=== PATIENT | female | born 1960 | race Caucasian/White ===

== ENCOUNTER → 2022-07-06 15:46 | Outpatient (CLI) | payer OTHER, MEDICAID, SELFPAY ==
--- NOTE | 2022-07-06 | DI.US.S_ITS ---
PROCEDURE: US THYROID INDICATIONS: ENLARGED RIGHT THYROID TECHNIQUE: Real-time scanning was performed of the thyroid gland, with image documentation. COMPARISON: None. FINDINGS: Right: Thyroid lobe measures 6.3 x 2.8 x 2.7 cm, and is homogeneous in echotexture. Left: Thyroid lobe measures 4.9 x 1.6 x 1.6 cm, and is diffusely heterogeneous in echotexture. Isthmus: 6 mm thick. At the inferior aspect of the right thyroid lobe there is a 16 mm solid-appearing mass with minimal internal vascularity. IMPRESSION: 1. Diffusely heterogeneous left thyroid. 2. No focal thyroid nodule. 3. Solid-appearing mass inferior to the right thyroid lobe which is indeterminate, with differential considerations including malignant neoplasm versus parathyroid lesion. This could be further assessed with IV contrast enhanced neck CT, if clinically indicated. Dictated by: Katharine Newell M.D. on 07/07/2022 at 12:16 Transcribed by: MAINOR on 07/07/2022 at 12:19 Approved by: Katharine Newell M.D. on 07/07/2022 at 16:53
== END ==
PROVIDERS: PCP Nurse Practitioner Family; Referring Provider Otolaryngology; Visit Provider Otolaryngology
DX: E04.9 Nontoxic goiter, unspecified (principal)
CPT/HCPCS: 76536

== ENCOUNTER → 2022-07-28 14:39 | Outpatient (CLI) | payer OTHER, MEDICAID, SELFPAY ==
--- NOTE | 2022-07-28 | DI.CT.S_ITS ---
PROCEDURE: CT SOFT TISSUE NECK WO/W CON INDICATIONS: NECK MASS TECHNIQUE: Before and after the administration of intravenous contrast, 2.0 mm axial sections acquired through the neck and down to the mabel. Additional 2.0 mm coronal and sagittal reformats were generated of the contrast enhanced images. For radiation dose reduction, the following was used: automated exposure control. COMPARISON: [facility], US, US THYROID, 07/06/2022, 15:55. FINDINGS: Image quality: Excellent. Thyroid: Thyroid gland is overall prominent in size bilaterally and heterogeneous in appearance. As noted on ultrasound, there is a masslike structure along the inferior aspect of the right thyroid lobe. It demonstrates enhancement pattern similar to the thyroid gland. Lymph nodes: No enlarged lymph nodes seen throughout the neck. Vessels: Visualized vasculature appears patent. Neck spaces: The oropharynx, nasopharynx, and pharynx demonstrate no mucosal lesions. The vocal cords, false vocal cords, pyriform sinuses, epiglottis, vallecula, and tongue base all appear normal. Extramucosal spaces appear unremarkable. Glands: The parotid and submandibular glands appear normal. Miscellaneous: Visualized lungs appear clear. Superficial soft tissues appear normal. Bones: No suspicious bony lesions. Visualized sinuses and mastoids appear unremarkable. IMPRESSION: Soft tissue density along the inferior margin of the right thyroid lobe as above. It demonstrates a similar enhancement pattern to the thyroid is suspected to be an inferior nodule. However, direct correlation with a nuclear medicine parathyroid exam is recommended. Dictated by: Kathi Aranda M.D. on 07/28/2022 at 16:43 Approved by: Kathi Aranda M.D. on 07/28/2022 at 16:46
== END ==
PROVIDERS: PCP Nurse Practitioner Family; Referring Provider Otolaryngology; Visit Provider Otolaryngology
DX: E07.9 Disorder of thyroid, unspecified (principal)
CPT/HCPCS: 70492; Q9967

== ENCOUNTER → 2022-11-25 08:06 | Outpatient (CLI) | payer OTHER, MEDICAID, SELFPAY ==
--- NOTE | 2022-11-25 | DI.NM.S_ITS ---
PROCEDURE: NM PARATHYROID SPECT RADIOPHARMACEUTICAL: 26.4 mCi Tc-99m sestamibi IV. INDICATIONS: Localized swelling, mass and lump, neck TECHNIQUE: After intravenous administration of Tc-99m sestamibi, anterior planar images of the neck and mediastinum were obtained at approximately 10 minutes and 2-3 hours. SPECT images were acquired after the 10 minute planar images. COMPARISON: [facility], [place], US THYROID, 07/06/2022, 15:55. [facility], CT, CT SOFT TISSUE NECK WO/W CON, 07/28/2022, 15:28. FINDINGS: On the early images, the thyroid gland is bilobed and has normal size and morphology. There is focal increased activity in the mid to inferior right thyroid bed. The delayed images show preferential tracer retention in the mid to inferior right thyroid bed suggesting parathyroid adenoma. The SPECT images demonstrate increased activity in the mid to inferior right thyroid bed. IMPRESSION: Suspect a parathyroid adenoma in the right mid to inferior thyroid bed. Please correlate with serum parathyroid hormone levels. If parathyroid hormone is not elevated, the nodule could represent an enlarged lymph node. Dictated by: Salvador De Leon M.D. on 11/25/2022 at 11:36 Approved by: Salvador De Leon M.D. on 11/25/2022 at 11:42
== END ==
PROVIDERS: PCP Nurse Practitioner Family; Referring Provider Otolaryngology; Visit Provider Otolaryngology
DX: R22.1 Localized swelling, mass and lump, neck (principal)
CPT/HCPCS: 78071; A9500